=== PATIENT | male | born 1980 | race Asian ===

== ENCOUNTER 2020-07-24 08:14 | Emergency (ER) | payer OTHER ==
[~2020-07-24] VITALS: Ht 170.2 cm; Wt 113.4 kg
[2020-07-24 08:17] VITALS: BP 145/82
--- NOTE | 2020-07-24 08:39 | NUR ---
Patient discharged to home in stable condition. Written and verbal after care instructions given. Patient verbalizes understanding of instruction.
== END 2020-07-24 08:39 | disposition home or self-care (01) ==
LOC: ER 08:17
DX: Z20.828 Contact with and (suspected) exposure to other viral communicable diseases (principal)
CPT/HCPCS: 99283; C9803; U0003

== ENCOUNTER 2020-07-31 08:41 | Emergency (ER) | payer OTHER ==
[~2020-07-31] VITALS: Ht 170.2 cm; Wt 113.4 kg
[2020-07-31 08:44] VITALS: BP 128/81
--- NOTE | 2020-07-31 08:56 | NUR ---
seen by ed provider. swabbed and sent to lab. d/c home.
--- NOTE | 2020-07-31 09:00 | NUR ---
Patient discharged to home in stable condition. Written and verbal after care instructions given. Patient verbalizes understanding of instruction.
== END 2020-07-31 09:01 | disposition home or self-care (01) ==
LOC: ER 08:44
DX: Z20.828 Contact with and (suspected) exposure to other viral communicable diseases (principal)
CPT/HCPCS: 99283; C9803; U0003

== ENCOUNTER 2020-08-07 07:29 | Emergency (ER) | payer OTHER ==
[~2020-08-07] VITALS: Ht 170.2 cm; Wt 113.4 kg
[2020-08-07 07:34] VITALS: BP 146/88
--- NOTE | 2020-08-07 07:48 | NUR ---
Patient discharged to home in stable condition. Written and verbal after care instructions given. Patient verbalizes understanding of instruction.
== END 2020-08-07 07:48 | disposition home or self-care (01) ==
LOC: ER 07:32
DX: Z20.828 Contact with and (suspected) exposure to other viral communicable diseases (principal)
CPT/HCPCS: 99283; C9803; U0003

== ENCOUNTER 2020-08-21 05:32 | Emergency (ER) | payer OTHER ==
[~2020-08-21] VITALS: Ht 170.2 cm; Wt 113.4 kg
[2020-08-21 05:34] VITALS: BP 124/68
== END 2020-08-21 06:19 | disposition home or self-care (01) ==
LOC: ER 05:34
DX: Z20.828 Contact with and (suspected) exposure to other viral communicable diseases (principal)
CPT/HCPCS: 99283; C9803; U0003

== ENCOUNTER 2020-09-04 06:40 | Emergency (ER) | payer OTHER ==
[~2020-09-04] VITALS: Ht 175.3 cm; Wt 113.4 kg
[2020-09-04 06:41] VITALS: BP 142/78
--- NOTE | 2020-09-04 06:59 | NUR ---
FRANCIS COLLECTED AND SENT TO THE LAB.
--- NOTE | 2020-09-04 07:04 | NUR ---
Patient discharged to home in stable condition. Written and verbal after care instructions given. Patient verbalizes understanding of instruction.
== END 2020-09-04 07:05 | disposition home or self-care (01) ==
LOC: ER 06:42
DX: Z20.828 Contact with and (suspected) exposure to other viral communicable diseases (principal)
CPT/HCPCS: 99283; C9803; U0003

== ENCOUNTER 2020-09-11 07:02 | Emergency (ER) | payer OTHER ==
[~2020-09-11] VITALS: Ht 175.3 cm; Wt 113.4 kg
[2020-09-11 07:05] VITALS: BP 127/64
--- NOTE | 2020-09-11 07:54 | NUR ---
covid 19 swab collected and sent to lab
--- NOTE | 2020-09-11 07:55 | NUR ---
Patient discharged to home in stable condition. Written and verbal after care instructions given. Patient verbalizes understanding of instruction.
== END 2020-09-11 07:55 | disposition home or self-care (01) ==
LOC: ER 07:04
DX: Z20.828 Contact with and (suspected) exposure to other viral communicable diseases (principal)
CPT/HCPCS: 99283; C9803; U0003

== ENCOUNTER 2020-09-18 09:06 | Emergency (ER) | payer OTHER ==
[~2020-09-18] VITALS: Ht 170.2 cm; Wt 113.4 kg
[2020-09-18 09:19] VITALS: BP 142/83
== END 2020-09-18 10:01 | disposition home or self-care (01) ==
LOC: ER 09:10
DX: Z20.828 Contact with and (suspected) exposure to other viral communicable diseases (principal)
CPT/HCPCS: 99283; C9803; U0003

== ENCOUNTER 2020-09-23 08:47 | Emergency (ER) | payer OTHER ==
[~2020-09-23] VITALS: Ht 170.2 cm; Wt 113.4 kg
[2020-09-23 08:57] VITALS: BP 141/90
== END 2020-09-23 10:05 | disposition home or self-care (01) ==
LOC: ER 08:48
DX: Z20.828 Contact with and (suspected) exposure to other viral communicable diseases (principal)
CPT/HCPCS: 99283; C9803; U0003

== ENCOUNTER 2020-10-01 06:52 | Emergency (ER) | payer OTHER ==
[~2020-10-01] VITALS: Ht 170.2 cm; Wt 113.4 kg
[2020-10-01 06:54] VITALS: BP 138/85
== END 2020-10-01 07:38 | disposition home or self-care (01) ==
LOC: ER 06:54
DX: Z20.828 Contact with and (suspected) exposure to other viral communicable diseases (principal); R03.0 Elevated blood-pressure reading, without diagnosis of hypertension
CPT/HCPCS: 99283; C9803; U0003

== ENCOUNTER 2020-10-07 14:59 | Emergency (ER) | payer OTHER ==
[~2020-10-07] VITALS: Ht 170.2 cm; Wt 113.4 kg
[2020-10-07 15:08] VITALS: BP 136/74
--- NOTE | 2020-10-07 15:24 | NUR ---
covid swab sent. Patient discharged to home in stable condition. Written and verbal after care instructions given. Patient verbalizes understanding of instruction.
== END 2020-10-07 15:24 | disposition home or self-care (01) ==
LOC: ER 15:00
DX: Z20.822 Contact with and (suspected) exposure to COVID-19 (principal)
CPT/HCPCS: 99283; C9803; U0003

== ENCOUNTER → 2020-10-09 | Emergency (ER) | payer OTHER ==
[~2020-10-09] VITALS: Ht 170.2 cm; Wt 113.4 kg
[2020-10-09 03:55] VITALS: BP 132/65
== END | disposition home or self-care (01) ==
LOC: ER 03:50
DX: Z20.822 Contact with and (suspected) exposure to COVID-19 (principal)
CPT/HCPCS: 99283; C9803; U0003

== ENCOUNTER 2020-10-13 07:34 | Emergency (ER) | payer OTHER ==
[~2020-10-13] VITALS: Ht 170.2 cm; Wt 113.4 kg
[2020-10-13 07:47] VITALS: BP 135/80
--- NOTE | 2020-10-13 09:02 | NUR ---
COVID SWAB SENT. Patient discharged to home in stable condition. Written and verbal after care instructions given. Patient verbalizes understanding of instruction.
== END 2020-10-13 09:03 | disposition home or self-care (01) ==
LOC: ER 07:35
DX: Z20.822 Contact with and (suspected) exposure to COVID-19 (principal)
CPT/HCPCS: 99283; C9803; U0003

== ENCOUNTER 2020-10-16 06:43 | Emergency (ER) | payer OTHER ==
[~2020-10-16] VITALS: Ht 170.2 cm; Wt 113.4 kg
[2020-10-16 06:45] VITALS: BP 138/79
== END 2020-10-16 07:08 | disposition home or self-care (01) ==
LOC: ER 06:47
DX: Z20.822 Contact with and (suspected) exposure to COVID-19 (principal)
CPT/HCPCS: 99283; C9803; U0003

== ENCOUNTER 2020-10-20 07:25 | Emergency (ER) | payer OTHER ==
[~2020-10-20] VITALS: Ht 170.2 cm; Wt 113.4 kg
[2020-10-20 07:28] VITALS: BP 130/85
== END 2020-10-20 09:25 | disposition home or self-care (01) ==
LOC: ER 07:27
DX: Z20.822 Contact with and (suspected) exposure to COVID-19 (principal)
CPT/HCPCS: 99283; C9803; U0003

== ENCOUNTER 2020-10-23 05:16 | Emergency (ER) | payer OTHER ==
[~2020-10-23] VITALS: Ht 172.7 cm; Wt 113.4 kg
[2020-10-23 05:18] VITALS: BP 124/78
== END 2020-10-23 05:32 | disposition home or self-care (01) ==
LOC: ER 05:16
DX: Z20.822 Contact with and (suspected) exposure to COVID-19 (principal)
CPT/HCPCS: 99283; C9803; U0003

== ENCOUNTER 2020-10-30 07:25 | Emergency (ER) | payer OTHER ==
[~2020-10-30] VITALS: Ht 170.2 cm; Wt 115.2 kg
[2020-10-30 07:29] VITALS: BP 138/88
== END 2020-10-30 08:06 | disposition home or self-care (01) ==
LOC: ER 07:27
DX: Z20.822 Contact with and (suspected) exposure to COVID-19 (principal)
CPT/HCPCS: 99283; C9803; U0003

== ENCOUNTER 2020-11-04 05:42 | Emergency (ER) | payer OTHER ==
[~2020-11-04] VITALS: Ht 172.7 cm; Wt 106.6 kg
[2020-11-04 05:51] VITALS: BP 132/78
== END 2020-11-04 06:38 | disposition home or self-care (01) ==
LOC: ER 05:44
DX: Z20.822 Contact with and (suspected) exposure to COVID-19 (principal)
CPT/HCPCS: 99283; C9803; U0003

== ENCOUNTER 2020-11-13 06:45 | Emergency (ER) | payer OTHER ==
[~2020-11-13] VITALS: Ht 172.7 cm; Wt 106.6 kg
[2020-11-13 06:46] VITALS: BP 142/77
== END 2020-11-13 06:55 | disposition home or self-care (01) ==
LOC: ER 06:45
DX: Z20.822 Contact with and (suspected) exposure to COVID-19 (principal)
CPT/HCPCS: 99283; C9803; U0003

== ENCOUNTER 2020-11-20 04:20 | Emergency (ER) | payer OTHER ==
[~2020-11-20] VITALS: Ht 172.7 cm; Wt 106.6 kg
[2020-11-20 04:20] VITALS: BP 135/64
--- NOTE | 2020-11-20 05:00 | NUR ---
swab collected and sent to the lab.
== END 2020-11-20 05:00 | disposition home or self-care (01) ==
LOC: ER 04:20
DX: Z20.822 Contact with and (suspected) exposure to COVID-19 (principal)
CPT/HCPCS: 99283; C9803; U0003

== ENCOUNTER 2020-12-04 06:51 | Emergency (ER) | payer OTHER ==
[~2020-12-04] VITALS: Ht 172.7 cm; Wt 106.6 kg
[2020-12-04 06:54] VITALS: BP 135/62
--- NOTE | 2020-12-04 07:30 | NUR ---
Patient discharged to home in stable condition. Written and verbal after care instructions given. Patient verbalizes understanding of instruction.
== END 2020-12-04 07:30 | disposition home or self-care (01) ==
LOC: ER 06:51
DX: Z20.822 Contact with and (suspected) exposure to COVID-19 (principal)
CPT/HCPCS: 99283; C9803; U0003

== ENCOUNTER 2020-12-11 07:27 | Emergency (ER) | payer OTHER ==
[~2020-12-11] VITALS: Ht 172.7 cm; Wt 106.6 kg
[2020-12-11 07:29] VITALS: BP 135/81
--- NOTE | 2020-12-11 07:47 | NUR ---
Patient discharged to home in stable condition. Written and verbal after care instructions given. Patient verbalizes understanding of instruction.
== END 2020-12-11 07:46 | disposition home or self-care (01) ==
LOC: ER 07:29
DX: Z53.21 Procedure and treatment not carried out due to patient leaving prior to being seen by health care provider (principal)

== ENCOUNTER 2020-12-11 09:29 | Emergency (ER) | payer OTHER ==
[~2020-12-11] VITALS: Ht 170.2 cm; Wt 97.5 kg
[2020-12-11 09:32] VITALS: BP 141/87
== END 2020-12-11 09:53 | disposition home or self-care (01) ==
LOC: ER 09:31
DX: Z20.822 Contact with and (suspected) exposure to COVID-19 (principal)
CPT/HCPCS: 99283; C9803; U0003

== ENCOUNTER 2020-12-16 10:03 | Emergency (ER) | payer OTHER ==
[~2020-12-16] VITALS: Ht 170.2 cm; Wt 115.7 kg
[2020-12-16 10:07] VITALS: BP 135/83
== END 2020-12-16 10:31 | disposition home or self-care (01) ==
LOC: ER 10:04
DX: Z20.822 Contact with and (suspected) exposure to COVID-19 (principal)
CPT/HCPCS: 99283; C9803; U0003

== ENCOUNTER 2020-12-25 06:37 | Emergency (ER) | payer OTHER ==
[~2020-12-25] VITALS: Ht 170.2 cm; Wt 115.7 kg
[2020-12-25 06:41] VITALS: BP 134/79
--- NOTE | 2020-12-25 06:50 | NUR ---
covid swab sent to lab
== END 2020-12-25 06:50 | disposition home or self-care (01) ==
LOC: ER 06:39
DX: Z20.822 Contact with and (suspected) exposure to COVID-19 (principal)
CPT/HCPCS: 99283; C9803; U0003

== ENCOUNTER 2020-12-31 10:08 | Emergency (ER) | payer OTHER ==
[~2020-12-31] VITALS: Ht 170.2 cm; Wt 117.9 kg
[2020-12-31 10:18] VITALS: BP 128/73
--- NOTE | 2020-12-31 10:20 | NUR ---
The patient bibs for COVID 19 test. Patient is alert and oriented x4. Denies any covid related symptoms. Will continue to monitor.
--- NOTE | 2020-12-31 10:38 | NUR ---
covid swab done and taken it to the lab.
--- NOTE | 2020-12-31 10:40 | NUR ---
Patient discharged to home in stable condition. Written and verbal after care instructions given. Patient verbalizes understanding of instruction. The patient left ER in stable condition.
== END 2020-12-31 10:41 | disposition home or self-care (01) ==
LOC: ER 10:10
DX: Z20.822 Contact with and (suspected) exposure to COVID-19 (principal)
CPT/HCPCS: 99283; C9803; U0003

== ENCOUNTER 2021-01-08 10:16 | Emergency (ER) | payer OTHER ==
[~2021-01-08] VITALS: Ht 167.6 cm; Wt 117.9 kg
[2021-01-08 10:18] VITALS: BP 118/71
--- NOTE | 2021-01-08 10:19 | NUR ---
called lab for covid swab
--- NOTE | 2021-01-08 10:53 | NUR ---
Patient discharged to home in stable condition. Written and verbal after care instructions given. Patient verbalizes understanding of instruction.
== END 2021-01-08 10:54 | disposition home or self-care (01) ==
LOC: ER 10:19
DX: Z20.822 Contact with and (suspected) exposure to COVID-19 (principal)
CPT/HCPCS: 99283; C9803; U0003

== ENCOUNTER 2021-01-14 17:06 | Emergency (ER) | payer OTHER ==
[~2021-01-14] VITALS: Ht 167.6 cm; Wt 117.9 kg
[2021-01-14 17:20] VITALS: BP 124/81
--- NOTE | 2021-01-14 18:02 | NUR ---
COVID TEST DONE & SENT TO LAB.
--- NOTE | 2021-01-14 18:03 | NUR ---
Patient discharged to home in stable condition. Written and verbal after care instructions given. Patient verbalizes understanding of instruction.
== END 2021-01-14 18:03 | disposition home or self-care (01) ==
LOC: ER 17:07
DX: Z20.822 Contact with and (suspected) exposure to COVID-19 (principal)
CPT/HCPCS: 99283; C9803; U0003

== ENCOUNTER 2021-01-22 07:35 | Emergency (ER) | payer OTHER ==
[~2021-01-22] VITALS: Ht 170.2 cm; Wt 117.9 kg
[2021-01-22 07:36] VITALS: BP 129/88
--- NOTE | 2021-01-22 07:45 | NUR ---
Patient discharged to home in stable condition. Written and verbal after care instructions given. Patient verbalizes understanding of instruction.
== END 2021-01-22 07:46 | disposition home or self-care (01) ==
LOC: ER 07:37
DX: Z20.822 Contact with and (suspected) exposure to COVID-19 (principal)
CPT/HCPCS: 99283; C9803; U0003

== ENCOUNTER 2021-01-27 03:59 | Emergency (ER) | payer OTHER ==
[~2021-01-27] VITALS: Ht 170.2 cm; Wt 117.9 kg
[2021-01-27 04:00] VITALS: BP 138/77
== END 2021-01-27 04:16 | disposition home or self-care (01) ==
LOC: ER 03:59
DX: Z20.822 Contact with and (suspected) exposure to COVID-19 (principal)
CPT/HCPCS: 99283; C9803; U0003

== ENCOUNTER 2021-03-19 08:16 | Emergency (ER) | payer OTHER ==
[~2021-03-19] VITALS: Ht 167.6 cm; Wt 117.9 kg
[2021-03-19 08:21] VITALS: BP 125/81
--- NOTE | 2021-03-19 08:30 | NUR ---
COVID SPECIMEN COLLECTED AND SENT TO LAB.
--- NOTE | 2021-03-19 08:32 | NUR ---
Patient discharged to home in stable condition. Written and verbal after care instructions given. Patient verbalizes understanding of instruction.
== END 2021-03-19 08:32 | disposition home or self-care (01) ==
LOC: ER 08:17
DX: Z20.822 Contact with and (suspected) exposure to COVID-19 (principal)
CPT/HCPCS: 99283; C9803; U0003